=== PATIENT | male | born 1930 | race Caucasian/White ===

== ENCOUNTER 2018-06-08 05:43 | Day surgery (SDC) | payer OTHER ==
[~2018-06-08] VITALS: Ht 30.5 cm; Wt 5.0 kg
[~2018-06-08 05:43] MED LIST: COZAAR100 MG PO; METOPROLOL SUCC25 MG PO; NORVASC5 MG PO
== END 2018-06-09 08:00 | disposition home or self-care (01) ==
LOC: CIR.AMB 05:43 → O/R 15:46 → SURG 15:46 → O/R 18:11 → SURG 18:11 → CIR.AMB 06-09 08:00 → O/R 06-09 13:19 → SURG 06-09 13:19
DX: N39.498 Other specified urinary incontinence (principal); T83.111A Breakdown (mechanical) of implanted urinary sphincter, initial encounter
CPT/HCPCS: 53447; C1771